=== PATIENT | male | born 1995 | race Hispanic/Latino ===

== ENCOUNTER 2018-07-07 20:12 | Emergency (ER) | payer SELFPAY, OTHER ==
[2018-07-07] MEDS: IBUPROFEN 600 MG TAB PO (21:53)
[2018-07-07] MEDS: PENICILLIN V POTASSIUM 500 MG TAB PO (23:04)
[2018-07-07] MEDS: ACETAMINOPHEN 325 MG TAB PO (23:04)
== END 2018-07-07 23:13 | disposition home or self-care (01) ==
LOC: M ED 20:12
DX: J02.9 Acute pharyngitis, unspecified (principal); H92.09 Otalgia, unspecified ear; F17.200 Nicotine dependence, unspecified, uncomplicated
CPT/HCPCS: 99283

== ENCOUNTER → 2020-02-22 | Outpatient (REF) ==
[~2020-02-22] MED LIST: IBUP-1022 PO; PENI500T PO
[2020-02-22 14:15] LABS: RUBELLA IgG QUALITATIVE IMMUNE (IMMUNE)
[2020-02-23 08:06] LABS: HERPES ZOSTER, VARICELLA IgG 2379 index (Immune >165); RUBEOLA IgG ANTIBODY >300.0 AU/mL (Immune >16.4)
== END ==
LOC: M LAB 12:18
PROVIDERS: ATTEND Nurse Practitioner Adult Health
DX: Z00.00 Encounter for general adult medical examination without abnormal findings (principal)

== ENCOUNTER 2022-08-05 18:54 | Emergency (ER) | payer BC, SELFPAY ==
[~2022-08-05] VITALS: Ht 162.6 cm; Wt 94.3 kg
[2022-08-05 22:46] LABS: BASO # 0.1 10^3/uL (0.0-0.2); BASO % 1.2 % (0.0-1.0); EOS # 0.3 10^3/uL (0.0-0.5); HEMATOCRIT 49.6 % (42.0-52.0); HEMOGLOBIN 16.5 g/dl (13.5-17.5); LYMPH # 2.8 10^3/uL (1.5-5.0); LYMPH % 27.6 % (24.0-44.0); MEAN CORPUSCULAR HEMOGLOBIN 28.5 pg (27.0-33.0); MEAN CORPUSCULAR HGB CONC 33.3 g/dl (32.0-36.5); MEAN CORPUSCULAR VOLUME 85.7 fl (80.0-96.0); MONO # 1.1 10^3/uL (0.0-0.8); MONO % 11.1 % (2.0-8.0); NEUTROPHILS # 5.7 10^3/uL (1.5-8.5); NEUTROPHILS % 56.8 % (36.0-66.0); PLATELET COUNT, AUTOMATED 210 10^3/uL (150-450); RED BLOOD COUNT 5.79 10^6/uL (4.30-6.10)
[2022-08-05 22:54] LABS: BLOOD UREA NITROGEN 10 MG/DL (7-18); CALCIUM LEVEL 9.3 MG/DL (8.5-10.1); CARBON DIOXIDE LEVEL 27 MEQ/L (21-32); CHLORIDE LEVEL 106 MEQ/L (98-107); CREATININE FOR GFR 0.86 MG/DL (0.70-1.30); GLOMERULAR FILTRATION RATE > 60.0 (>60); GLUCOSE, FASTING 94 MG/DL (70-100); SODIUM LEVEL 139 MEQ/L (136-145)
[2022-08-05 23:54] LABS: GC DNA AMPLIFICATION NEGATIVE (NEGATIVE)
[2022-08-06 02:20] VITALS: BP 127/74
== END 2022-08-06 02:31 | disposition home or self-care (01) ==
LOC: M ED 18:54
DX: R59.0 Localized enlarged lymph nodes (principal)